=== PATIENT | female | born 1980 | race Hispanic/Latino ===

== ENCOUNTER → 2017-09-30 | Outpatient (CLI) | payer OTHER ==
[~2017-09-30] MED LIST: LIDOCAINE/PRILOCAINE CREAM 5GM TUBE TP ONE
[2017-09-30 18:33] VITALS: BP 155/99
== END | disposition home or self-care (01) ==
LOC: WHH 15:00
PROVIDERS: ATTEND Family Medicine
DX: T81.89XD Other complications of procedures, not elsewhere classified, subsequent encounter (principal); E66.01 Morbid (severe) obesity due to excess calories; K74.60 Unspecified cirrhosis of liver; L40.8 Other psoriasis; Y83.8 Other surgical procedures as the cause of abnormal reaction of the patient, or of later complication, without mention of misadventure at the time of the procedure
CPT/HCPCS: 11042; A4450; J3490

== ENCOUNTER → 2017-10-17 | Outpatient (CLI) | payer OTHER ==
[2017-10-17 16:14] VITALS: BP 175/105
== END | disposition home or self-care (01) ==
LOC: WHH 14:00
PROVIDERS: ATTEND Family Medicine
DX: T81.89XD Other complications of procedures, not elsewhere classified, subsequent encounter (principal); L40.8 Other psoriasis; G43.909 Migraine, unspecified, not intractable, without status migrainosus; E66.01 Morbid (severe) obesity due to excess calories; Y83.8 Other surgical procedures as the cause of abnormal reaction of the patient, or of later complication, without mention of misadventure at the time of the procedure
CPT/HCPCS: 11042

== ENCOUNTER → 2017-10-24 | Outpatient (CLI) | payer OTHER ==
[2017-10-24 15:28] VITALS: BP 174/104
== END | disposition home or self-care (01) ==
LOC: WHH 13:30
PROVIDERS: ATTEND Family Medicine
DX: T81.89XD Other complications of procedures, not elsewhere classified, subsequent encounter (principal); L40.9 Psoriasis, unspecified; E66.01 Morbid (severe) obesity due to excess calories; G43.909 Migraine, unspecified, not intractable, without status migrainosus; K74.60 Unspecified cirrhosis of liver; L40.8 Other psoriasis; Y83.8 Other surgical procedures as the cause of abnormal reaction of the patient, or of later complication, without mention of misadventure at the time of the procedure
CPT/HCPCS: 11042; J3490

== ENCOUNTER → 2017-10-31 | Outpatient (CLI) | payer OTHER ==
[2017-10-31 17:38] VITALS: BP 152/98
== END | disposition home or self-care (01) ==
LOC: WHH 12:55
PROVIDERS: ATTEND Family Medicine
DX: T81.89XD Other complications of procedures, not elsewhere classified, subsequent encounter (principal); M79.89 Other specified soft tissue disorders; E66.01 Morbid (severe) obesity due to excess calories; G43.909 Migraine, unspecified, not intractable, without status migrainosus; L40.8 Other psoriasis; K74.60 Unspecified cirrhosis of liver; Y83.8 Other surgical procedures as the cause of abnormal reaction of the patient, or of later complication, without mention of misadventure at the time of the procedure
CPT/HCPCS: 11042; A4450; A6452; J3490

== ENCOUNTER → 2017-11-07 | Outpatient (CLI) | payer OTHER ==
[2017-11-07 13:20] VITALS: BP 168/106
== END | disposition home or self-care (01) ==
LOC: WHH 13:00
PROVIDERS: ATTEND Family Medicine
DX: T81.89XD Other complications of procedures, not elsewhere classified, subsequent encounter (principal); E66.01 Morbid (severe) obesity due to excess calories; G43.909 Migraine, unspecified, not intractable, without status migrainosus; K74.60 Unspecified cirrhosis of liver; L40.8 Other psoriasis; Y83.8 Other surgical procedures as the cause of abnormal reaction of the patient, or of later complication, without mention of misadventure at the time of the procedure
CPT/HCPCS: 11042; J3490

== ENCOUNTER → 2017-11-21 | Outpatient (CLI) | payer OTHER | END | disposition home or self-care (01) | LOC: RAH 12:43 | PROVIDERS: ATTEND Family Medicine | DX: S81.809D Unspecified open wound, unspecified lower leg, subsequent encounter (principal); X58.XXXD Exposure to other specified factors, subsequent encounter | CPT/HCPCS: 93971 ==

== ENCOUNTER → 2017-11-28 | Outpatient (CLI) | payer OTHER ==
[~2017-11-28] MED LIST changes: +HONEY 1 APPL/ML TUBE TP ONE
[2017-11-28 13:47] VITALS: BP 186/88
== END | disposition home or self-care (01) ==
LOC: WHH 13:00
PROVIDERS: ATTEND Family Medicine
DX: S81.801D Unspecified open wound, right lower leg, subsequent encounter (principal); G43.909 Migraine, unspecified, not intractable, without status migrainosus; E66.01 Morbid (severe) obesity due to excess calories; X58.XXXD Exposure to other specified factors, subsequent encounter
CPT/HCPCS: 11042; A4450; A6452; J3490

== ENCOUNTER → 2017-12-05 | Outpatient (CLI) | payer OTHER ==
[~2017-12-05] MED LIST changes: -HONEY 1 APPL/ML TUBE TP ONE
[2017-12-05 13:42] VITALS: BP 164/103
== END | disposition home or self-care (01) ==
LOC: WHH 13:00
PROVIDERS: ATTEND Family Medicine
DX: T81.89XD Other complications of procedures, not elsewhere classified, subsequent encounter (principal); I83.018 Varicose veins of right lower extremity with ulcer other part of lower leg; L97.811 Non-pressure chronic ulcer of other part of right lower leg limited to breakdown of skin; G43.809 Other migraine, not intractable, without status migrainosus; E66.01 Morbid (severe) obesity due to excess calories; L40.8 Other psoriasis; Y83.8 Other surgical procedures as the cause of abnormal reaction of the patient, or of later complication, without mention of misadventure at the time of the procedure
CPT/HCPCS: 11042; 36415; 84134; A6452; J3490; 86141

== ENCOUNTER → 2017-12-19 | Outpatient (CLI) | payer OTHER ==
[2017-12-19 15:31] VITALS: BP 148/93
== END | disposition home or self-care (01) ==
LOC: WHH 13:00
PROVIDERS: ATTEND Family Medicine
DX: T81.89XD Other complications of procedures, not elsewhere classified, subsequent encounter (principal); I83.018 Varicose veins of right lower extremity with ulcer other part of lower leg; L97.811 Non-pressure chronic ulcer of other part of right lower leg limited to breakdown of skin; I89.0 Lymphedema, not elsewhere classified; G43.809 Other migraine, not intractable, without status migrainosus; L40.8 Other psoriasis; E66.01 Morbid (severe) obesity due to excess calories; Y83.8 Other surgical procedures as the cause of abnormal reaction of the patient, or of later complication, without mention of misadventure at the time of the procedure
CPT/HCPCS: 11042; 36415; 86140; J3490; 86141

== ENCOUNTER → 2017-12-26 | Outpatient (CLI) | payer OTHER ==
[2017-12-26 08:18] VITALS: BP 147/82
== END | disposition home or self-care (01) ==
LOC: WHH 08:00
PROVIDERS: ATTEND Family Medicine
DX: I83.018 Varicose veins of right lower extremity with ulcer other part of lower leg (principal); L97.811 Non-pressure chronic ulcer of other part of right lower leg limited to breakdown of skin; E66.01 Morbid (severe) obesity due to excess calories; G43.909 Migraine, unspecified, not intractable, without status migrainosus; L40.8 Other psoriasis
CPT/HCPCS: 11042; A6452; J3490

== ENCOUNTER → 2018-01-02 | Outpatient (CLI) | payer OTHER ==
[~2018-01-02] MED LIST changes: +HONEY 1 APPL/ML TUBE TP ONE
[2018-01-02 13:25] VITALS: BP 158/82
== END | disposition home or self-care (01) ==
LOC: WHH 13:00
PROVIDERS: ATTEND Family Medicine
DX: T81.89XD Other complications of procedures, not elsewhere classified, subsequent encounter (principal); I83.018 Varicose veins of right lower extremity with ulcer other part of lower leg; L97.811 Non-pressure chronic ulcer of other part of right lower leg limited to breakdown of skin; G43.909 Migraine, unspecified, not intractable, without status migrainosus; L40.8 Other psoriasis; E66.01 Morbid (severe) obesity due to excess calories; I89.0 Lymphedema, not elsewhere classified; Y83.8 Other surgical procedures as the cause of abnormal reaction of the patient, or of later complication, without mention of misadventure at the time of the procedure
CPT/HCPCS: 11042; A4450; A6452; J3490

== ENCOUNTER → 2018-01-16 | Outpatient (CLI) | payer OTHER ==
[2018-01-16 13:24] VITALS: BP 182/88
== END | disposition home or self-care (01) ==
LOC: WHH 13:00
PROVIDERS: ATTEND Family Medicine
DX: I83.018 Varicose veins of right lower extremity with ulcer other part of lower leg (principal); L97.811 Non-pressure chronic ulcer of other part of right lower leg limited to breakdown of skin; G43.909 Migraine, unspecified, not intractable, without status migrainosus; L40.8 Other psoriasis; E66.01 Morbid (severe) obesity due to excess calories; I89.0 Lymphedema, not elsewhere classified
CPT/HCPCS: 11042; A6213; J3490

== ENCOUNTER → 2018-01-30 | Outpatient (CLI) | payer OTHER ==
[~2018-01-30] MED LIST changes: -HONEY 1 APPL/ML TUBE TP ONE
[2018-01-30 13:50] VITALS: BP 149/84
== END | disposition home or self-care (01) ==
LOC: WHH 13:00
PROVIDERS: ATTEND Family Medicine
DX: T81.89XD Other complications of procedures, not elsewhere classified, subsequent encounter (principal); I83.018 Varicose veins of right lower extremity with ulcer other part of lower leg; L97.811 Non-pressure chronic ulcer of other part of right lower leg limited to breakdown of skin; E66.01 Morbid (severe) obesity due to excess calories; L40.9 Psoriasis, unspecified; G43.909 Migraine, unspecified, not intractable, without status migrainosus; I89.0 Lymphedema, not elsewhere classified; Y83.8 Other surgical procedures as the cause of abnormal reaction of the patient, or of later complication, without mention of misadventure at the time of the procedure
CPT/HCPCS: 11042; A6022; A6197; A6452; J3490

== ENCOUNTER → 2018-02-03 | Outpatient (CLI) | payer OTHER | END | disposition home or self-care (01) | LOC: WHH 15:30 | PROVIDERS: ATTEND Family Medicine | DX: I83.018 Varicose veins of right lower extremity with ulcer other part of lower leg (principal); L97.811 Non-pressure chronic ulcer of other part of right lower leg limited to breakdown of skin; E66.01 Morbid (severe) obesity due to excess calories; L40.9 Psoriasis, unspecified; G43.909 Migraine, unspecified, not intractable, without status migrainosus; I89.0 Lymphedema, not elsewhere classified | CPT/HCPCS: 99211; A6197 ==

== ENCOUNTER 2018-02-06 16:07 | Emergency (ER) | payer OTHER ==
[2018-02-06 16:48] LABS: APPEARANCE,URINE Cloudy (CLEAR); BILIRUBIN,URINE Negative (NEGATIVE); COLOR,URINE Yellow (YELLOW); GLUCOSE, URINE (UA) Negative (NEGATIVE); KETONES,URINE Negative (NEGATIVE); LEUKOCYTE ESTERASE ,URINE Large (NEGATIVE); NITRATE,URINE Negative (NEGATIVE); OCCULT BLOOD,URINE Moderate (NEGATIVE); PH,URINE 6.5 (5.0-8.0); PROTEIN,URINE Negative (NEGATIVE); UROBILINOGEN,URINE 0.2 mg/dL (0.2-1.0)
[2018-02-06 16:53] LABS: HCG,QUAL RESULT NEGATIVE (NEGATIVE)
[2018-02-06 16:56] LABS: BACTERIA,URINE Rare /HPF (None Seen); MUCUS,URINE Few LPF (None Seen); TRANSITIONAL EPI CELLS,URINE Few /HPF (None Seen); YEAST,URINE BUDDING Rare /HPF (None Seen)
== END 2018-02-06 18:28 | disposition home or self-care (01) ==
LOC: EDH 16:07
DX: I10 Essential (primary) hypertension (principal); F41.1 Generalized anxiety disorder; L40.9 Psoriasis, unspecified; Z88.0 Allergy status to penicillin
CPT/HCPCS: 70450; 81001; 81025; 93005

== ENCOUNTER → 2018-02-06 | Outpatient (CLI) | payer OTHER ==
[2018-02-06 13:59] VITALS: BP 196/116
[2018-02-06 14:10] VITALS: BP 170/116
== END | disposition home or self-care (01) ==
LOC: WHH 13:00
PROVIDERS: ATTEND Family Medicine
DX: T81.89XD Other complications of procedures, not elsewhere classified, subsequent encounter (principal); L40.8 Other psoriasis; G43.909 Migraine, unspecified, not intractable, without status migrainosus; E66.01 Morbid (severe) obesity due to excess calories; I89.0 Lymphedema, not elsewhere classified; Y83.8 Other surgical procedures as the cause of abnormal reaction of the patient, or of later complication, without mention of misadventure at the time of the procedure
CPT/HCPCS: 11042; A6022; A6197; J3490

== ENCOUNTER → 2018-02-20 | Outpatient (CLI) | payer OTHER ==
[2018-02-20 13:34] VITALS: BP 130/91
== END | disposition home or self-care (01) ==
LOC: WHH 13:00
PROVIDERS: ATTEND Family Medicine
DX: I83.018 Varicose veins of right lower extremity with ulcer other part of lower leg (principal); L97.811 Non-pressure chronic ulcer of other part of right lower leg limited to breakdown of skin; L40.8 Other psoriasis; G43.909 Migraine, unspecified, not intractable, without status migrainosus; I89.0 Lymphedema, not elsewhere classified; E66.01 Morbid (severe) obesity due to excess calories
CPT/HCPCS: 11042; A6022; A6197; A6452; J3490

== ENCOUNTER → 2018-03-06 | Outpatient (CLI) | payer OTHER ==
[2018-03-06 15:23] VITALS: BP 156/86
== END | disposition home or self-care (01) ==
LOC: WHH 13:00
PROVIDERS: ATTEND Family Medicine
DX: T81.89XD Other complications of procedures, not elsewhere classified, subsequent encounter (principal); I83.018 Varicose veins of right lower extremity with ulcer other part of lower leg; L97.811 Non-pressure chronic ulcer of other part of right lower leg limited to breakdown of skin; E66.01 Morbid (severe) obesity due to excess calories; G43.909 Migraine, unspecified, not intractable, without status migrainosus; I89.0 Lymphedema, not elsewhere classified; I10 Essential (primary) hypertension; F41.1 Generalized anxiety disorder; L40.8 Other psoriasis; Y83.8 Other surgical procedures as the cause of abnormal reaction of the patient, or of later complication, without mention of misadventure at the time of the procedure
CPT/HCPCS: 11042; A4450; A6197; A6452; J3490

== ENCOUNTER → 2018-03-13 | Outpatient (CLI) | payer OTHER ==
[2018-03-13 14:52] VITALS: BP 162/104
== END | disposition home or self-care (01) ==
LOC: WHH 13:00
PROVIDERS: ATTEND Family Medicine
DX: T81.89XD Other complications of procedures, not elsewhere classified, subsequent encounter (principal); G43.909 Migraine, unspecified, not intractable, without status migrainosus; E66.01 Morbid (severe) obesity due to excess calories; I10 Essential (primary) hypertension; F41.1 Generalized anxiety disorder; I89.0 Lymphedema, not elsewhere classified; L40.8 Other psoriasis; Y83.8 Other surgical procedures as the cause of abnormal reaction of the patient, or of later complication, without mention of misadventure at the time of the procedure
CPT/HCPCS: 11042; A6209

== ENCOUNTER → 2018-03-24 | Outpatient (CLI) | payer OTHER ==
[2018-03-24 13:50] VITALS: BP 162/109
== END | disposition home or self-care (01) ==
LOC: WHH 13:00
PROVIDERS: ATTEND Family Medicine
DX: I83.018 Varicose veins of right lower extremity with ulcer other part of lower leg (principal); L97.811 Non-pressure chronic ulcer of other part of right lower leg limited to breakdown of skin; G43.909 Migraine, unspecified, not intractable, without status migrainosus; E66.01 Morbid (severe) obesity due to excess calories; I10 Essential (primary) hypertension; I89.0 Lymphedema, not elsewhere classified; L40.8 Other psoriasis; F41.1 Generalized anxiety disorder
CPT/HCPCS: 11042; A6197; A6248; J3490

== ENCOUNTER → 2018-04-03 | Outpatient (CLI) | payer OTHER ==
[2018-04-03 15:06] VITALS: BP 160/105
== END | disposition home or self-care (01) ==
LOC: WHH 13:00
PROVIDERS: ATTEND Family Medicine
DX: I83.018 Varicose veins of right lower extremity with ulcer other part of lower leg (principal); L97.811 Non-pressure chronic ulcer of other part of right lower leg limited to breakdown of skin; G43.909 Migraine, unspecified, not intractable, without status migrainosus; E66.01 Morbid (severe) obesity due to excess calories; I10 Essential (primary) hypertension; I89.0 Lymphedema, not elsewhere classified; L40.8 Other psoriasis; F41.1 Generalized anxiety disorder
CPT/HCPCS: 11042; A6196; J3490

== ENCOUNTER 2018-11-07 14:35 | Emergency (ER) | payer OTHER ==
[2018-11-07] MEDS ORDERED: PHENAZOPYRIDINE HCL 200 MG TABLET ONE (14:53)
[2018-11-07] MEDS ORDERED: CEFTRIAXONE SODIUM 1 GM ONE (14:53)
[2018-11-07 15:20] LABS: BILIRUBIN,URINE Negative (NEGATIVE); GLUCOSE, URINE (UA) Negative (NEGATIVE); KETONES,URINE Negative (NEGATIVE); LEUKOCYTE ESTERASE ,URINE Moderate (NEGATIVE); NITRATE,URINE Negative (NEGATIVE); OCCULT BLOOD,URINE Large (NEGATIVE); PH,URINE 5.5 (5.0-8.0); PROTEIN,URINE POS 2+ (NEGATIVE); UROBILINOGEN,URINE 0.2 mg/dL (0.2-1.0)
[2018-11-07 15:22] LABS: APPEARANCE,URINE BLOODY (CLEAR); COLOR,URINE RED (YELLOW)
[2018-11-07 15:23] LABS: HCG,QUAL RESULT NEGATIVE (NEGATIVE)
[2018-11-07 15:25] LABS: RBC,URINE Full Field /HPF (0-1)
[2018-11-07 15:26] LABS: BACTERIA,URINE Few /HPF (None Seen); WBC,URINE >100 /HPF (0-1)
[2018-11-07 15:31] LABS: RENAL EPITHELIAL CELLS,URINE Rare /HPF (None Seen); TRANSITIONAL EPI CELLS,URINE Moderate /HPF (None Seen)
== END 2018-11-07 15:40 | disposition home or self-care (01) ==
LOC: EDH 14:35
DX: N30.91 Cystitis, unspecified with hematuria (principal); G43.909 Migraine, unspecified, not intractable, without status migrainosus; Z88.0 Allergy status to penicillin
CPT/HCPCS: 81001; 81025; 87088; 96372; 99283; J0696

== ENCOUNTER → 2019-04-02 | Outpatient (CLI) | payer OTHER | END | disposition home or self-care (01) | LOC: SHCH 09:56 | PROVIDERS: ATTEND Internal Medicine Cardiovascular Disease | DX: R07.9 Chest pain, unspecified (principal) | CPT/HCPCS: 93306 ==

== ENCOUNTER → 2019-04-23 | Outpatient (CLI) | payer OTHER ==
[~2019-04-23] VITALS: Ht 170.2 cm; Wt 146.1 kg
[~2019-04-23] MED LIST changes: -LIDOCAINE/PRILOCAINE CREAM 5GM TUBE TP ONE; +REGADENOSON 0.4 MG/5 ML PF SYG IVP SCH
== END | disposition home or self-care (01) ==
LOC: SHCH 08:43
PROVIDERS: ATTEND Internal Medicine Cardiovascular Disease
DX: R07.9 Chest pain, unspecified (principal)
CPT/HCPCS: 78452; 93017; 96374; A9500 ×2; J2785

== ENCOUNTER 2021-11-06 17:28 | Emergency (ER) | payer OTHER ==
[~2021-11-06] VITALS: Ht 157.5 cm; Wt 113.4 kg
[2021-11-06 17:59] LABS: BASOPHILS % (AUTO) 0.4 % (0.0-5.0); EOSINOPHILS % (AUTO) 0.8 % (0.0-8.0); HEMATOCRIT 42.6 % (36-48); LYMPHOCYTES % (AUTO) 15.4 % (21.0-51.0); MEAN CORPUSCULAR HEMOGLOBIN 28.3 pg (27.0-33.0); MEAN CORPUSCULAR HGB CONC 31.5 g/dL (32.0-36.0); MEAN CORPUSCULAR VOLUME 89.9 fL (79-99); MONOCYTES % (AUTO) 4.5 % (3.0-13.0); NEUTROPHILS % (AUTO) 78.5 % (40.0-77.0); PLATELET COUNT (AUTO) 511 K/uL (130-400); RED BLOOD CELL COUNT(AUTO) 4.74 MIL/uL (4.00-5.50); RED CELL DISTRIBUTION WIDTH 13.7 % (11.0-15.5); WHITE BLOOD COUNT (AUTO) 16.8 K/uL (4.8-10.8)
[2021-11-06 18:01] LABS: APPEARANCE,URINE CLEAR (CLEAR); BILIRUBIN,URINE NEGATIVE (NEGATIVE); COLOR,URINE YELLOW (YELLOW); GLUCOSE, URINE (UA) NEGATIVE (NEGATIVE); KETONES,URINE 5 mg/dL (NEGATIVE); LEUKOCYTE ESTERASE ,URINE SMALL (NEGATIVE); NITRATE,URINE NEGATIVE (NEGATIVE); OCCULT BLOOD,URINE NEGATIVE (NEGATIVE); PROTEIN,URINE TRACE mg/dL (NEGATIVE); UROBILINOGEN,URINE 0.2 mg/dL (0.2-1.0)
[2021-11-06 18:04] LABS: HCG,QUAL RESULT NEGATIVE (NEGATIVE)
[2021-11-06 18:06] LABS: BACTERIA,URINE Few /HPF (None Seen); RBC,URINE 0-1 /HPF (0-1)
[2021-11-06 18:07] LABS: MUCUS,URINE Rare LPF (None Seen); SQUAMOUS EPITHELIAL CELL,UR Moderate /HPF (0-2)
[2021-11-06 18:12] LABS: CREATININE 0.7 mg/dL (0.5-1.5)
[2021-11-06 18:16] LABS: ALBUMIN 3.5 g/dL (3.5-5.0); BILIRUBIN,TOTAL 0.6 mg/dL (0.2-1.0); TOTAL PROTEIN, SERUM 7.8 g/dL (6.0-8.3)
[2021-11-06] MEDS ORDERED: MAG/ALUM/SIMETH 30 ML UDCUP PO ONE (18:30)
[2021-11-06] MEDS ORDERED: MORPHINE 4 MG SYG IV ONE (18:30)
[2021-11-06] MEDS ORDERED: FAMOTIDINE 20MG VIAL IV ONE (18:30)
[2021-11-06] MEDS ORDERED: ONDANSETRON 4MG INJ IVP ONE (18:30)
[2021-11-06] MEDS ORDERED: KETOROLAC 15MG/ML VIAL (15MG/ML) IV ONE (20:00)
[2021-11-06] MEDS ORDERED: ACET1TAB25 PO (20:05)
[2021-11-06] MEDS ORDERED: ONDA4TAB10 PO (20:05)
[2021-11-06 20:08] VITALS: BP 132/74
== END 2021-11-06 20:13 | disposition home or self-care (01) ==
LOC: EDH 17:28
DX: K80.20 Calculus of gallbladder without cholecystitis without obstruction (principal); R10.13 Epigastric pain; R11.0 Nausea
CPT/HCPCS: 36415; 74177; 76705; 80053; 81001; 81025; 83690; 85025; 93005; 96374; 96375; 99285; J1885; J2270; J2405; J3490

== ENCOUNTER 2022-10-01 05:06 | Observation (INO) | payer OTHER ==
[~2022-10-01] VITALS: Ht 170.2 cm; Wt 112.0 kg
[~2022-10-01 05:06] MED LIST changes: +ACET-2079 PO; +ONDA4TAB10 PO; -REGADENOSON 0.4 MG/5 ML PF SYG IVP SCH
[2022-10-01] MEDS ORDERED: ONDANSETRON 4MG INJ IVP ONE (05:30)
[2022-10-01] MEDS ORDERED: MORPHINE 4 MG SYG IVP ONE (05:30)
[2022-10-01 05:36] LABS: BASOPHILS % (AUTO) 0.3 % (0.0-5.0); HEMATOCRIT 37.6 % (36-48); LYMPHOCYTES % (AUTO) 13.6 % (21.0-51.0); MEAN CORPUSCULAR HEMOGLOBIN 28.4 pg (27.0-33.0); MEAN CORPUSCULAR HGB CONC 32.4 g/dL (32.0-36.0); MEAN CORPUSCULAR VOLUME 87.4 fL (79-99); MONOCYTES % (AUTO) 5.1 % (3.0-13.0); NEUTROPHILS % (AUTO) 79.3 % (40.0-77.0); PLATELET COUNT (AUTO) 352 K/uL (130-400); WHITE BLOOD COUNT (AUTO) 13.5 K/uL (4.8-10.8)
[2022-10-01 05:48] LABS: CREATININE 0.7 mg/dL (0.5-1.5); POTASSIUM 3.5 mmol/L (3.5-5.1)
[2022-10-01 05:52] LABS: ALBUMIN 3.1 g/dL (3.5-5.0); TOTAL PROTEIN, SERUM 6.8 g/dL (6.0-8.3)
[2022-10-01] MEDS ORDERED: KETOROLAC 30MG VIAL (30MG/ML) IVP ONE (06:30)
[2022-10-01] MEDS ORDERED: 0.9%NACL 1000ML 1,000 ML IV ONE (06:30)
[2022-10-01] MEDS ORDERED: ZOSYN 3.375GM +NS 50ML IV ONE (06:30)
[2022-10-01] MEDS ORDERED: ONDANSETRON 4MG INJ IV PRN (07:30)
[2022-10-01] MEDS ORDERED: LACTULOSE 20 GM/30 ML UDCUP PO PRN (07:30)
[2022-10-01] MEDS ORDERED: HYDROMORPHONE 1 MG INJ IVP PRN (07:30)
[2022-10-01] MEDS ORDERED: HYDROMORPHONE 0.5 MG SYG (0.5MG/0.5ML) IVP PRN (07:30)
[2022-10-01] MEDS ORDERED: ACETAMINOPHEN 325 MG TAB PO PRN ×2 (07:30)
[2022-10-01] MEDS ORDERED: SOLU-MEDROL 40MG VIAL ONE (07:47)
[2022-10-01] MEDS: DiphenhydrAMINE HCL 50 MG/ML VIAL ONE ×2 (07:53→07:54)
[2022-10-01] MEDS: 0.9%NACL 1000ML 1,000 ML IV SCH ×2 (07:55→23:30)
[2022-10-01] MEDS: FAMOTIDINE 20MG VIAL IV SCH ×2 (07:57→21:08)
[2022-10-01] MEDS ORDERED: DiphenhydrAMINE HCL 50 MG/ML VIAL IV ONE (08:00)
[2022-10-01] MEDS ORDERED: SOLU-MEDROL 40MG VIAL IVP ONE (08:00)
[2022-10-01 08:16] LABS: INR 0.93 (0.85-1.15)
[2022-10-01 08:17] LABS: PARTIAL THROMBOPLASTIN TIME 28.1 SEC (26.3-35.5)
[2022-10-01 08:22] LABS: MAGNESIUM 1.9 mg/dL (1.80-2.40); PHOSPHORUS 3.4 mg/dL (2.5-4.9)
[2022-10-01 08:30] VITALS: BP 118/73
[2022-10-01 08:33] LABS: APPEARANCE,URINE CLOUDY (CLEAR); BILIRUBIN,URINE NEGATIVE (NEGATIVE); COLOR,URINE YELLOW (YELLOW); GLUCOSE, URINE (UA) NEGATIVE (NEGATIVE); KETONES,URINE 10 mg/dL (NEGATIVE); LEUKOCYTE ESTERASE ,URINE 25 Leu/uL (NEGATIVE); NITRATE,URINE NEGATIVE (NEGATIVE); OCCULT BLOOD,URINE NEGATIVE (NEGATIVE); PROTEIN,URINE 10 mg/dL (NEGATIVE)
[2022-10-01 08:37] LABS: HCG,QUALITATIVE URINE NEGATIVE (NEGATIVE)
[2022-10-01 08:40] LABS: MUCUS,URINE FEW LPF (None Seen); SQUAMOUS EPITHELIAL CELL,UR RARE /HPF (0-2)
[2022-10-01 11:47] VITALS: BP 121/81
[2022-10-01] MEDS ORDERED: ZOSYN 3.375GM+NS 50ML 50 ML IV SCH (13:00)
[2022-10-01 15:51] VITALS: BP 119/71
[2022-10-01 19:58] VITALS: BP 120/69
[2022-10-01] MEDS ORDERED: LEVOFLOXACIN 500 MG/D5W 100 ML 100 ML IV SCH (20:00)
[2022-10-01 23:34] VITALS: BP 122/69
[2022-10-02 03:41] VITALS: BP 108/67
[2022-10-02] MEDS: 0.9%NACL 1000ML 1,000 ML IV SCH (05:16)
[2022-10-02] MEDS: FAMOTIDINE 20MG VIAL IV SCH (08:51)
[2022-10-02 12:00] VITALS: BP 141/98
[2022-10-02 12:15] LABS: BASOPHILS % (AUTO) 0.2 % (0.0-5.0); EOSINOPHILS % (AUTO) 0.4 % (0.0-8.0); HEMATOCRIT 37.5 % (36-48); LYMPHOCYTES % (AUTO) 13.2 % (21.0-51.0); MEAN CORPUSCULAR HEMOGLOBIN 28.3 pg (27.0-33.0); MEAN CORPUSCULAR VOLUME 88.4 fL (79-99); MONOCYTES % (AUTO) 5.5 % (3.0-13.0); NEUTROPHILS % (AUTO) 79.2 % (40.0-77.0); PLATELET COUNT (AUTO) 362 K/uL (130-400); RED BLOOD CELL COUNT(AUTO) 4.24 MIL/uL (4.00-5.50); WHITE BLOOD COUNT (AUTO) 13.3 K/uL (4.8-10.8)
[2022-10-02 12:37] LABS: ALBUMIN 2.9 g/dL (3.5-5.0); CREATININE 0.6 mg/dL (0.5-1.5); POTASSIUM 3.6 mmol/L (3.5-5.1); TOTAL PROTEIN, SERUM 6.4 g/dL (6.0-8.3)
[2022-10-02 16:00] VITALS: BP 144/81
== END 2022-10-02 16:30 | disposition home or self-care (01) ==
LOC: EDH 05:06 → EDHIP 07:16 → INTOOBSV 07:16 → 3DH 08:31
PROVIDERS: ADMIT Internal Medicine; ATTEND Internal Medicine
DX: R10.11 Right upper quadrant pain (principal); Z20.822 Contact with and (suspected) exposure to COVID-19; D72.829 Elevated white blood cell count, unspecified; E66.9 Obesity, unspecified; K76.0 Fatty (change of) liver, not elsewhere classified; N39.0 Urinary tract infection, site not specified; Z88.0 Allergy status to penicillin; Z79.52 Long term (current) use of systemic steroids; Z68.38 Body mass index [BMI] 38.0-38.9, adult; Z79.899 Other long term (current) drug therapy
CPT/HCPCS: 96361 ×2; 78226; 99284; 96375 ×2; 96365; 76705; 96367; 87635; 80061; 83735; 84100; 80053 ×2; 83690; 85025 ×2; 85610; 85730; 87804 ×2; 81001; 81025; 36415 ×2; 96376 ×2; C9803; J1200; J3490 ×3; J1956; J7030 ×2; J2405; J2920; J2270; J1885; J2543; J1170 ×2; A9537; G0378

== ENCOUNTER 2023-06-12 12:00 | Emergency (ER) | payer OTHER ==
[~2023-06-12] VITALS: Ht 170.2 cm; Wt 111.6 kg
[~2023-06-12 12:00] MED LIST changes: -ACET-2079 PO; +APRE1TAB3 PO; +DICY20TA3 PO; +DIPH-1242 PO; +FAMO40TA7 PO; +METO25TA6 PO; +MONT-39 PO; -ONDA4TAB10 PO; +PRED20TA3 PO
[2023-06-12 12:14] VITALS: BP 160/87; PULSE 87; RESP 16; O2SAT 97
== END 2023-06-12 16:16 | disposition left against medical advice (07) ==
LOC: EDH 12:00
DX: R10.32 Left lower quadrant pain (principal); R10.31 Right lower quadrant pain; Z53.21 Procedure and treatment not carried out due to patient leaving prior to being seen by health care provider
CPT/HCPCS: 99281

== ENCOUNTER 2023-10-31 20:26 | Emergency (ER) | payer OTHER ==
[~2023-10-31] VITALS: Ht 170.2 cm; Wt 113.4 kg
[2023-10-31] MEDS ORDERED: SOLU-MEDROL 125MG VIAL IVP ONE (21:00)
[2023-10-31] MEDS ORDERED: DiphenhydrAMINE HCL 50 MG/ML VIAL IV ONE (21:00)
[2023-10-31] MEDS ORDERED: FAMOTIDINE 20MG VIAL IV ONE (21:00)
[2023-10-31 21:36] VITALS: BP 127/68; PULSE 74; RESP 16; O2SAT 98
[2023-10-31] MEDS ORDERED: FAMO-136 PO (22:01)
[2023-10-31] MEDS ORDERED: [UNRECOGNIZED DRUG - CODE] PO (22:01)
[2023-10-31] MEDS ORDERED: DIPH50 PO (22:01)
== END 2023-10-31 22:14 | disposition home or self-care (01) ==
LOC: EDH 20:26
DX: T78.40XA Allergy, unspecified, initial encounter (principal); Z79.899 Other long term (current) drug therapy; Z88.0 Allergy status to penicillin; Z90.49 Acquired absence of other specified parts of digestive tract
CPT/HCPCS: 99284; 96374; 96375; J1200; J3490; J2930

== ENCOUNTER 2024-07-20 21:01 | Emergency (ER) | payer OTHER ==
[~2024-07-20] VITALS: Ht 170.2 cm; Wt 107.5 kg
[~2024-07-20 21:01] MED LIST changes: +DIPH50 PO; +FAMO-136 PO; +[UNRECOGNIZED DRUG - CODE] PO
[2024-07-20 21:54] LABS: HEMATOCRIT 37.9 % (36-48); MEAN CORPUSCULAR HEMOGLOBIN 29.3 pg (27.0-33.0); MEAN CORPUSCULAR HGB CONC 33.5 g/dL (32.0-36.0); MEAN CORPUSCULAR VOLUME 87.5 fL (79-99); RED BLOOD CELL COUNT(AUTO) 4.33 MIL/uL (4.00-5.50); RED CELL DISTRIBUTION WIDTH 13.2 % (11.0-15.5); WHITE BLOOD COUNT (AUTO) 9.9 K/uL (4.8-10.8)
[2024-07-20 22:09] LABS: CREATININE 0.7 mg/dL (0.5-1.0); POTASSIUM 4.3 mmol/L (3.5-5.1)
[2024-07-20 22:23] LABS: ALBUMIN 3.6 g/dL (3.5-5.0); BILIRUBIN,TOTAL 0.3 mg/dL (0.2-1.0); THYROID STIMULATING HORMONE 3.08 uIU/mL (0.36-3.74); TOTAL PROTEIN, SERUM 7.1 g/dL (6.0-8.3)
[2024-07-20] MEDS: clonazePAM 0.5 MG TABLET PO ONE (22:43)
[2024-07-20] MEDS: furoSEMIDE 20MG VIAL IV ONE (22:43)
[2024-07-20 23:01] LABS: RAPID GROUP A STREP negative (NEGATIVE)
[2024-07-20 23:10] LABS: COVID19 (SARS ANTIGEN RAPID) PRESUMPTIVE NEGATIVE (NEGATIVE); INFLUENZA TYPE A Negative For Type A (NEGATIVE); INFLUENZA TYPE B Negative For Type B (NEGATIVE)
[2024-07-20] MEDS ORDERED: PHEN-615 PO (23:12)
[2024-07-20] MEDS ORDERED: FISH1CAP27 PO (23:12)
[2024-07-20] MEDS ORDERED: ERGO500093 PO (23:12)
[2024-07-20] MEDS ORDERED: AMIT25TA9 PO (23:12)
[2024-07-20 23:45] LABS: AMPHET/METH SCREEN,URINE NEGATIVE (NEGATIVE); BARBITURATE SCREEN, URINE NEGATIVE (NEGATIVE); BENZODIAZEPINES SCREEN,URINE NEGATIVE (NEGATIVE); CANNABINOID SCREEN,URINE NEGATIVE (NEGATIVE); COCAINE SCREEN,URINE NEGATIVE (NEGATIVE); OPIATE SCREEN,URINE NEGATIVE (NEGATIVE); PHENCYCLIDINE SCREEN,URINE NEGATIVE (NEGATIVE)
[2024-07-20 23:55] VITALS: BP 126/65; PULSE 97; RESP 18; TEMP 98.6; O2SAT 100
[2024-07-20 23:55] LABS: APPEARANCE,URINE CLEAR (CLEAR); BILIRUBIN,URINE NEGATIVE (NEGATIVE); COLOR,URINE COLORLESS (YELLOW); GLUCOSE, URINE (UA) NEGATIVE (NEGATIVE); KETONES,URINE 5 mg/dL (NEGATIVE); LEUKOCYTE ESTERASE ,URINE NEGATIVE Leu/uL (NEGATIVE); NITRATE,URINE NEGATIVE (NEGATIVE); OCCULT BLOOD,URINE NEGATIVE (NEGATIVE); PH,URINE 5.5 (5.0-8.0); PROTEIN,URINE NEGATIVE (NEGATIVE); UROBILINOGEN,URINE 0.2 mg/dL (0.2-1.0)
[2024-07-21 00:08] LABS: ADD UA MICROSCOPIC NO
== END 2024-07-21 00:01 | disposition home or self-care (01) ==
LOC: EDH 21:01
DX: R00.0 Tachycardia, unspecified (principal); R00.2 Palpitations; E66.811 Obesity, class 1; F41.9 Anxiety disorder, unspecified; I10 Essential (primary) hypertension; G43.909 Migraine, unspecified, not intractable, without status migrainosus; Z20.822 Contact with and (suspected) exposure to COVID-19; Z68.30 Body mass index [BMI] 30.0-30.9, adult; Z79.899 Other long term (current) drug therapy; Z88.0 Allergy status to penicillin; Z90.49 Acquired absence of other specified parts of digestive tract
CPT/HCPCS: 99285; 96374; 71045; 87426; 84443; 84484; 80053; 80305; 84703; 85027; 87880; 87804 ×2; 83605; 36415; 93005; 81003; J1940

== ENCOUNTER 2024-08-02 15:57 | Emergency (ER) | payer OTHER ==
[~2024-08-02] VITALS: Ht 170.2 cm; Wt 105.7 kg
[~2024-08-02 15:57] MED LIST changes: +AMIT25TA9 PO; +ERGO500093 PO; +FISH1CAP27 PO; +PHEN-615 PO
[2024-08-02 16:03] VITALS: BP 127/77; PULSE 99; RESP 16; TEMP 97.5
[2024-08-02 16:37] LABS: BASOPHILS # (AUTO) 0.07 K/uL (0.00-0.20); BASOPHILS % (AUTO) 0.3 % (0.0-5.0); EOSINOPHILS # (AUTO) 0.24 K/uL (0.00-0.70); EOSINOPHILS % (AUTO) 1.1 % (0.0-8.0); HEMATOCRIT 40.6 % (36-48); IMMATURE GRANULOCYTE ABSOLUTE 0.27 K/uL (0-1); LYMPHOCYTES # (AUTO) 4.3 K/uL (1.0-4.8); LYMPHOCYTES % (AUTO) 20.3 % (21.0-51.0); MEAN CORPUSCULAR HEMOGLOBIN 29.2 pg (27.0-33.0); MEAN CORPUSCULAR HGB CONC 33.5 g/dL (32.0-36.0); MEAN CORPUSCULAR VOLUME 87.1 fL (79-99); MONOCYTES # (AUTO) 1.2 K/uL (0.1-1.0); MONOCYTES % (AUTO) 5.6 % (3.0-13.0); NEUTROPHILS # (AUTO) 15.2 K/uL (1.8-7.7); NEUTROPHILS % (AUTO) 71.4 % (40.0-77.0); PLATELET COUNT (AUTO) 361 K/uL (130-400); RED BLOOD CELL COUNT(AUTO) 4.66 MIL/uL (4.00-5.50); RED CELL DISTRIBUTION WIDTH 13.2 % (11.0-15.5); WHITE BLOOD COUNT (AUTO) 21.2 K/uL (4.8-10.8)
[2024-08-02 16:44] LABS: CREATININE 0.8 mg/dL (0.5-1.0); POTASSIUM 3.5 mmol/L (3.5-5.1)
--- NOTE | 2024-08-02 17:52 | ERN ---
ED Note History of Present Illness Stated Complaint: RECTAL BLEEDING Chief Complaint: Tarry Stool Time Seen by MD: 17:19 Time Seen by Midlevel: 17:19 Dictation: 44-year-old female presents to the emergency department due to report of having concern of having had 1 bowel movement in which that she noticed a trace of blood after she wiped herself. She states that she does have a history of constipation and believes that it might be have attributed to having an episode of straining. However, she is concerned due to having being treated with multiple antibiotics for GERD and is concerned that this might be related to it. Patient states that she was also diagnosed with pneumonia and was placed on extended amount of time on steroids for which she just finished 3 days ago. At this time, she denies having any fever, chills, abdominal pain, nausea or vomiting associated with this. Upon initial evaluation, the patient presents in no acute distress. Allergies: Coded Allergies: piperacillin (Unverified Allergy, Intermediate, 10/01/22) RASH TO FACE AND R SIDE OF NECK. tazobactam (Unverified Allergy, Intermediate, 10/01/22) RASH TO FACE AND R SIDE OF NECK. Penicillins (Unverified Allergy, Mild, 10/01/22) HIVES amoxicillin (Unverified Allergy, Mild, 10/01/22) REDNESS TO BUE, ITCHING TO BODY clavulanic acid (Unverified Allergy, Mild, 10/01/22) REDNESS TO BUE, ITCHING TO BODY Home Meds Active Scripts Prednisolone Sod Phosphate (Prednisolone Sodium Phosphate) 30 Mg Tab.rapdis, 60 MG PO Q12H for 3 Days, #12 TAB Prov:MAGDALENA PITTMAN MD 10/31/23 Famotidine (Pepcid) 20 Mg Tablet, 20 MG PO Q12H for 3 Days, #6 TAB Prov:MAGDALENA PITTMAN MD 10/31/23 Diphenhydramine HCl (Benadryl) 50 Mg Cap, 50 MG PO Q6H for 3 Days, #12 CAP Prov:MAGDALENA PITTMAN MD 10/31/23 Famotidine (Famotidine) 40 Mg Tablet, 40 MG PO DAILY for 10 Days, #10 TAB Prov:REBECCA TERRELL MD 01/04/23 Diphenhydramine HCl (Benadryl) 25 Mg Cap, 25 MG PO TID for 10 Days, #40 CAP Prov:REBECCA TERRELL MD 01/04/23 Prednisone (Prednisone) 20 Mg Tablet, 3 TAB PO AD for 5 Days, #15 TAB 0 Refills TAKE 1 TAB BY MOUTH THREE TIMES PER DAY X3 DAYS, THEN TAKE 1 TAB BY MOUTH TWICE A DAY X2 DAYS, THEN TAKE 1 TAB BY MOUTH ONCE A DAY X1 DAY. Prov:REBECCA TERRELL MD 01/04/23 Reported Medications Ergocalciferol (Vitamin D2) (Vitamin D2) 1,250 Mcg (14145 Unit) Capsule, 1250 MCG PO AM, CAP 07/20/24 Jbph[facility]-3 Fatty Acids/Fish Oil ([facility] 3 1,000 mg Softgel) 300 Mg-1,000 Mg Capsule, 1 EACH PO BID, CAP 07/20/24 Phentermine HCl (Phentermine HCl) 37.5 Mg Capsule, 37.5 MG PO BID, CAP 07/20/24 Amitriptyline HCl (Amitriptyline HCl) 25 Mg Tablet, 25 MG PO HS, TAB 07/20/24 Dicyclomine HCl (Dicyclomine HCl) 20 Mg Tablet, 20 MG PO Q4HPRN PRN for PAIN LEVEL 1 TO 5, TAB 10/22/22 Montelukast Sodium (Montelukast Sodium) 10 Mg Tablet, 10 MG PO DAILY, TAB 10/22/22 Apremilast (Otezla) 1 Each Tab.ds.pk, 1 EACH PO QODAY 10/22/22 Metoprolol Tartrate (Metoprolol Tartrate) 25 Mg Tablet, 25 MG PO DAILY, TAB 10/22/22 Past Medical History Past Medical History: Migraines Additional Past Medical Hx: ALLERGIES, PSORASIS Surgical History: Cholecystectomy, Other Surgical History Other: SKIN GRAFTS Family History: Negative Social History: Negative, Lives with family LMP: Jul 03, 2024 RN Note Reviewed/Agreed w/PFSH: Yes Review of System Dictation Abdomen/GI: Constipation, rectal bleeding. Initial Vital Sign VS Vital Signs Date Time Temp Pulse Resp B/P (MAP) Pulse Ox O2 Delivery O2 Flow Rate FiO2 08/02/24 16:03 97.5 99 16 127/77 96 Room Air 0 Physical Exam Dictation General: awake, alert, NAD Head/Face: Normocephalic, atraumatic Eyes: PERRL, EOMI ENT: Oral mucosa moist Neck: Trachea midline, supple Cardiovascular: RRR, no edema Respiratory: Symmetrical, non-labored Abdomen: Soft, non-tender, non-distended, no guarding. Skin: Warm, dry, good turgor, no rash MS/Extremity: Pulses equal, no cyanosis, neurovascular intact, FROM Neuro: COAx4, GCS 15, steady gait, Psych: Normal behavior, mood, and affect normal Results (Laboratory/Radiology) Laboratory/Radiology Laboratory Tests Test 08/02/24 16:26 08/02/24 20:09 White Blood Count 21.2 K/uL (4.8-10.8) H Red Blood Count 4.66 MIL/uL (4.00-5.50) Hemoglobin 13.6 g/dL (12.0-16.0) Hematocrit 40.6 % (36-48) Mean Corpuscular Volume 87.1 fL (79-99) Mean Corpuscular Hemoglobin 29.2 pg (27.0-33.0) Mean Corpuscular Hemoglobin Concent 33.5 g/dL (32.0-36.0) Red Cell Distribution Width 13.2 % (11.0-15.5) Platelet Count 361 K/uL (130-400) Mean Platelet Volume 8.7 fL (7.5-10.5) Immature Granulocyte % (Auto) 1.3 % (0-1) H Neutrophils (%) (Auto) 71.4 % (40.0-77.0) Lymphocytes (%) (Auto) 20.3 % (21.0-51.0) L Monocytes (%) (Auto) 5.6 % (3.0-13.0) Eosinophils (%) (Auto) 1.1 % (0.0-8.0) Basophils (%) (Auto) 0.3 % (0.0-5.0) Neutrophils # (Auto) 15.2 K/uL (1.8-7.7) H Lymphocytes # (Auto) 4.3 K/uL (1.0-4.8) Monocytes # (Auto) 1.2 K/uL (0.1-1.0) H Eosinophils # (Auto) 0.24 K/uL (0.00-0.70) Basophils # (Auto) 0.07 K/uL (0.00-0.20) Absolute Immature Granulocyte (auto 0.27 K/uL (0-1) Nucleated Red Blood Cells 0.0 % (0.0-0.19) Sodium Level 135 mmol/L (136-145) L Potassium Level 3.5 mmol/L (3.5-5.1) Chloride Level 99 mmol/L (101-111) L Carbon Dioxide Level 27 mmol/L (21-32) Blood Urea Nitrogen 18 mg/dL (7-18) Creatinine 0.8 mg/dL (0.5-1.0) Glomerular Filtration Rate Calc 94 mL/min (>90) Random Glucose 99 mg/dL (70-105) Total Calcium 8.9 mg/dL (8.5-10.1) Urine Color LIGHT-YELLOW (YELLOW) Urine Appearance CLEAR (CLEAR) Urine pH 6.0 (5.0-8.0) Urine Specific [place] 1.044 (1.001-1.031) Urine Protein 10 mg/dL (NEGATIVE) H Urine Glucose (UA) NEGATIVE mg/dL (NEGATIVE) Urine Ketones NEGATIVE mg/dL (NEGATIVE) Urine Occult Blood NEGATIVE (NEGATIVE) Urine Nitrate NEGATIVE (NEGATIVE) Urine Bilirubin NEGATIVE mg/dL (NEGATIVE) Urine Urobilinogen 0.2 mg/dL (0.2-1.0) Urine Leukocyte Esterase NEGATIVE Aftab/uL Urine HCG, Qualitative NEGATIVE (NEGATIVE) Labs Reviewed?: Yes CT Scan Comment: CT scan with no significant findings as per radiologist's or then a di verticulosis without diverticulitis and hernia. ED Course ED Course Orders Procedure Category Date Status Time Cbc With Differential LAB 08/02/24 Complete 16:07 Basic Metabolic Panel LAB 08/02/24 Complete 16:07 Type And Screen BBK 08/02/24 Complete 16:07 Urinalysis Profile LAB 08/02/24 In Process 16:07 ,Urine Test LAB 08/02/24 In Process 16:07 Abd 1vw RAD 08/02/24 Resulted 17:49 Ct Abdomen/Pelvis CT 08/02/24 Resulted W/Contrast 19:12 Iohexol (Omnipaque) PHA 08/02/24 Complete 19:54 Current Medications Medications (Trade) Dose Ordered Sig/Alice Route PRN Reason Start Time Stop Time Status Last Admin Dose Admin Iohexol (Omnipaque) 35,000 mg STK-MED ONCE IV 08/02/24 19:54 08/02/24 19:54 DC Vital Signs Date Time Temp Pulse Resp B/P (MAP) Pulse Ox O2 Delivery O2 Flow Rate FiO2 08/02/24 16:03 97.5 99 16 127/77 96 Room Air 0 Medical Decision Making MDM MDM: Differential diagnosis: Acute diverticulitis, acute intra-abdominal abscess, rectal bleeding, small bowel obstruction. Rationale: Tests considered and ordered secondary to shared decision making include: Previous outside records reviewed: Old ER visits. Risk of complication and/or morbidity or mortality of patient management: None Medications-Per medication reconciliation Need for hospitalization: Patient does not meet criteria for hospitalization. Need for emergency major/minor surgery: No There are no social concerns with this patient. Prescription drug management Prescriptions will include symptomatic care A review of her laboratories which noted an elevated WBC count is more consistent with that associated to having been placed on extended amount of leila od time on steroids. The CT scan of the abdomen/pelvis with IV contrast was with no particular findings and upon re-evaluation for discharge she presents with benign abdominal examination. After shared decision-making, the patient is comfortable going home and follow up with the PCP for which she agrees with the treatment plan of care. Patient's prior external medical records from other ER visits were reviewed by me as indicated. Prior testing and results from previous visits were reviewed. Prior tests were taken into account with medical decision making and resource utilization, independent historian/historians were used to obtain complete medical history. I independently interpreted the test that were performed, results were reviewed by me and considered findings on radiology if ordered. Medical management and examination interpretation discussions were had by me with other qualified healthcare professionals as indicated for the patient's care. DX & DISP Disposition: Discharge Departure Impression: Primary Impression: Abdominal discomfort Additional Impression: Leukocytosis Condition: Stable Referrals: WALLACE OWUSU DO (PCP) I have reviewed the case, and I agree with, Diagnosis and Plan IVONNE NESBITT Aug 02, 2024 17:52
--- NOTE | 2024-08-02 18:48 | HMCIMG ---
Exam Type: ABD 1VW Clinical Information: Constipation Comparison: None Findings: Abdomen demonstrates no evidence of pathologic calcification or soft tissue mass. There are no radiopacities to suggest calculous disease. The intestinal gas pattern is within normal limits without evidence of dilatation to suggest obstruction or adynamic ileus. The bony structures are unremarkable. IMPRESSION: Normal abdomen.
[2024-08-02] MEDS ORDERED: IOHEXOL 350 MG/ML 100ML INFUS..BTL IV ONE (19:54)
--- NOTE | 2024-08-02 20:26 | HMCIMG ---
CT ABDOMEN/PELVIS W/CONTRAST HISTORY: Rectal bleeding TECHNIQUE: CT ABDOMEN/PELVIS W/CONTRAST Omnipaque contrast was used. Oral contrast was not given. Coronal and sagittal reformats were obtained. CT was performed with one or more of the following dose reduction techniques: Automated exposure control, adjustment of the mA and/or kV according to the patient's size, or use of the iterative reconstruction technique. Comparison: None. FINDINGS: No pulmonary consolidation or pleural effusion is seen. There is hepatic steatosis. Cholecystectomy changes are noted. The spleen, pancreas, and adrenal glands are within normal limits. No hydronephrosis. The urinary bladder is partially distended. Reproductive organs are grossly within normal limits for patient's age. No bowel obstruction is seen. Appendix is normal in caliber. Diverticulosis coli without evidence of acute diverticulitis. Small fat-containing umbilical hernia is seen. Degenerative changes of the spine. Visualized aorta is normal in caliber. IMPRESSION: 1. No bowel obstruction is seen. Appendix is normal in caliber. Diverticulosis coli without evidence of acute diverticulitis. 2. Small fat-containing umbilical hernia is seen.
[2024-08-02 20:30] LABS: HCG,QUALITATIVE URINE NEGATIVE (NEGATIVE)
[2024-08-02 20:34] LABS: APPEARANCE,URINE CLEAR (CLEAR); BILIRUBIN,URINE NEGATIVE (NEGATIVE); COLOR,URINE LIGHT-YELLOW (YELLOW); GLUCOSE, URINE (UA) NEGATIVE (NEGATIVE); KETONES,URINE NEGATIVE (NEGATIVE); LEUKOCYTE ESTERASE ,URINE NEGATIVE Leu/uL (NEGATIVE); NITRATE,URINE NEGATIVE (NEGATIVE); OCCULT BLOOD,URINE NEGATIVE (NEGATIVE); PROTEIN,URINE 10 mg/dL (NEGATIVE); UROBILINOGEN,URINE 0.2 mg/dL (0.2-1.0)
[2024-08-02 20:35] LABS: ADD UA MICROSCOPIC YES
[2024-08-02 20:36] LABS: MUCUS,URINE RARE LPF (None Seen); SQUAMOUS EPITHELIAL CELL,UR MOD /HPF (0-2)
== END 2024-08-02 20:53 | disposition home or self-care (01) ==
LOC: EDH 15:57 → EEVIPCON 15:57 → EDH 20:53
DX: K57.30 Diverticulosis of large intestine without perforation or abscess without bleeding (principal); K42.9 Umbilical hernia without obstruction or gangrene; D72.829 Elevated white blood cell count, unspecified; G43.909 Migraine, unspecified, not intractable, without status migrainosus; Z79.899 Other long term (current) drug therapy; Z88.0 Allergy status to penicillin; Z90.49 Acquired absence of other specified parts of digestive tract; Z98.890 Other specified postprocedural states
CPT/HCPCS: 99285; 74177; 80048; 85025; 86850; 86900; 86901; 81001; 81025; 36415; 74018; Q9967

== ENCOUNTER 2025-01-28 10:09 | Emergency (ER) | payer OTHER ==
[~2025-01-28] VITALS: Ht 167.6 cm; Wt 101.2 kg
[~2025-01-28 10:09] MED LIST changes: -PHEN-615 PO; +PHEN37.599 PO
--- NOTE | 2025-01-28 10:25 | ERN ---
General Chief Complaint: Headache Stated Complaint: HEADACHE Time Seen by MD: 10:10 Time Seen by Midlevel: 10:10 Source: patient History of Present Illness Initial Comments The patient is a 44-year-old female with a history of migraine headaches presenting to the emergency department with multiple complaints. She reports working outside for prolonged period of time yesterday. She developed the headache, palpitations, generalized body weakness. She saw her primary care doctor and was told that she may need IV fluids if her symptoms persisted. Today she woke up with a worsening symptoms so she decided to report to the ER for further evaluation. Allergies: Coded Allergies: piperacillin (Unverified Allergy, Intermediate, 10/01/22) RASH TO FACE AND R SIDE OF NECK. tazobactam (Unverified Allergy, Intermediate, 10/01/22) RASH TO FACE AND R SIDE OF NECK. Penicillins (Unverified Allergy, Mild, 10/01/22) HIVES amoxicillin (Unverified Allergy, Mild, 10/01/22) REDNESS TO BUE, ITCHING TO BODY clavulanic acid (Unverified Allergy, Mild, 10/01/22) REDNESS TO BUE, ITCHING TO BODY Home Meds Active Scripts Prednisolone Sod Phosphate (Prednisolone Sodium Phosphate) 30 Mg Tab.rapdis, 60 MG PO Q12H for 3 Days, #12 TAB Prov:MAGDALENA PITTMAN MD 10/31/23 Famotidine (Pepcid) 20 Mg Tablet, 20 MG PO Q12H for 3 Days, #6 TAB Prov:MAGDALENA PITTMAN MD 10/31/23 Diphenhydramine HCl (Benadryl) 50 Mg Cap, 50 MG PO Q6H for 3 Days, #12 CAP Prov:MAGDALENA PITTMAN MD 10/31/23 Famotidine (Famotidine) 40 Mg Tablet, 40 MG PO DAILY for 10 Days, #10 TAB Prov:REBECCA TERRELL MD 01/04/23 Diphenhydramine HCl (Benadryl) 25 Mg Cap, 25 MG PO TID for 10 Days, #40 CAP Prov:REBECCA TERRELL MD 01/04/23 Prednisone (Prednisone) 20 Mg Tablet, 3 TAB PO AD for 5 Days, #15 TAB 0 Refills TAKE 1 TAB BY MOUTH THREE TIMES PER DAY X3 DAYS, THEN TAKE 1 TAB BY MOUTH TWICE A DAY X2 DAYS, THEN TAKE 1 TAB BY MOUTH ONCE A DAY X1 DAY. Prov:REBECCA TERRELL MD 01/04/23 Reported Medications Ergocalciferol (Vitamin D2) (Vitamin D2) 1,250 Mcg (43185 Unit) Capsule, 1250 MCG PO AM, CAP 07/20/24 [place]-3 Fatty Acids/Fish Oil ([place] 3 1,000 mg Softgel) 300 Mg-1,000 Mg Capsule, 1 EACH PO BID, CAP 07/20/24 Phentermine HCl (Phentermine HCl) 37.5 Mg Capsule, 37.5 MG PO BID, CAP 07/20/24 Amitriptyline HCl (Amitriptyline HCl) 25 Mg Tablet, 25 MG PO HS, TAB 07/20/24 Dicyclomine HCl (Dicyclomine HCl) 20 Mg Tablet, 20 MG PO Q4HPRN PRN for PAIN LEVEL 1 TO 5, TAB 10/22/22 Montelukast Sodium (Montelukast Sodium) 10 Mg Tablet, 10 MG PO DAILY, TAB 10/22/22 Apremilast (Otezla) 1 Each Tab.ds.pk, 1 EACH PO QODAY 10/22/22 Metoprolol Tartrate (Metoprolol Tartrate) 25 Mg Tablet, 25 MG PO DAILY, TAB 10/22/22 Past Medical History Past Medical History: Migraines Medical History Other: ALLERGIES, PSORASIS Past Surgical History: Cholecystectomy, Other Surgical History Other: SKIN GRAFTS Family History Family History: Negative Social History Social History: Negative, Lives with family ROS Dictation CONSTITUTIONAL: Negative except for HPI HEAD/FACE: Negative except for HPI EENT: Negative except for HPI RESPIRATORY: Negative except for HPI GASTROINTESTINAL/ABDOMINAL: Negative except for HPI GENITOURINARY: Negative except for HPI MUSCULOSKELETAL: Negative except for HPI INTEGUMENTARY: Negative except for HPI NEUROLOGICAL/PSYCH: Negative except for HPI HEMATOLOGIC/LYMPHATIC: Negative except for HPI All Systems Negative, Except as noted above. 13 point review of systems assessed and all negative except for above. Physical Exam Physical Exam Dictation Vital Signs reviewed General Appearance: Alert, oriented x 3, no acute distress, well developed, nourished. Head and Face: non-traumatic. Eyes: PERRL, pink conjunctivas, eyelid no trauma, anterior chamber with arcus senilis. Ears: Pinnas intact and no signs of trauma or erythema ear canals clear and no discharge TM no erythema Nose: No discharge, no bleeding. Oropharynx: Mouth normal, tongue pink, pharynx clear,no erythema, tonsils no exudates, no abscesses noted, mucous membrane moist Neck: Supple, non-tender, no thyromegaly, no masses, no JVD, no bruits Breast:Deferred Chest:No tenderness, no crepitus, no paradoxical movement, no retractions Lungs:Clear, well-ventilated, symmetric, no rales, no wheezing, no rhonchi, no stridor, good breath sounds bilaterally Heart: Tachycardic, regular rhythm, no murmur, no gallops Vascular: no peripheral edema, Abdomen: Soft, positive bowel sounds, nondistended, no guarding, nontender, no rebound, no masses no hepatomegaly, no splenomegaly, no Landa's sign, no hernias. Rectal: Deferred Genital: Deferred Neurological: Normal speech, motor function intact, sensory function intact Musculoskeletal: Neck nontender, full range of motion, back nontender, full range of motion, Extremities: nontender, full range of motion Skin: Color pink, dry, no turgor, no rash, no lacerations, no abrasions, no contusions. Lymphatic: Deferred Results Laboratory and Microbiology Lab and Micro Result Laboratory Tests Test 01/28/25 10:33 01/28/25 11:32 White Blood Count 15.5 K/uL (4.8-10.8) H Red Blood Count 4.89 MIL/uL (4.00-5.50) Hemoglobin 14.6 g/dL (12.0-16.0) Hematocrit 42.1 % (36-48) Mean Corpuscular Volume 86.1 fL (79-99) Mean Corpuscular Hemoglobin 29.9 pg (27.0-33.0) Mean Corpuscular Hemoglobin Concent 34.7 g/dL (32.0-36.0) Red Cell Distribution Width 12.9 % (11.0-15.5) Platelet Count 475 K/uL (130-400) H Mean Platelet Volume 9.3 fL (7.5-10.5) Immature Granulocyte % (Auto) 2.2 % (0-1) H Neutrophils (%) (Auto) 88.2 % (40.0-77.0) H Lymphocytes (%) (Auto) 7.5 % (21.0-51.0) L Monocytes (%) (Auto) 2.0 % (3.0-13.0) L Eosinophils (%) (Auto) 0.0 % (0.0-8.0) Basophils (%) (Auto) 0.1 % (0.0-5.0) Neutrophils # (Auto) 13.7 K/uL (1.8-7.7) H Lymphocytes # (Auto) 1.2 K/uL (1.0-4.8) Monocytes # (Auto) 0.3 K/uL (0.1-1.0) Eosinophils # (Auto) 0.00 K/uL (0.00-0.70) Basophils # (Auto) 0.02 K/uL (0.00-0.20) Absolute Immature Granulocyte (auto 0.34 K/uL (0-1) Nucleated Red Blood Cells 0.0 % (0.0-0.19) White Cell Morphology Comment See comments Sodium Level 138 mmol/L (136-145) Potassium Level 3.8 mmol/L (3.5-5.1) Chloride Level 103 mmol/L (101-111) Carbon Dioxide Level 23 mmol/L (21-32) Blood Urea Nitrogen 11 mg/dL (7-18) Creatinine 0.7 mg/dL (0.5-1.0) Glomerular Filtration Rate Calc 111 mL/min (>90) Random Glucose 143 mg/dL (70-105) H Total Calcium 9.5 mg/dL (8.5-10.1) Total Creatine Kinase 44 U/L (21-232) # Troponin I High Sensitivity < 4 ng/L (4-50) L Serum Test, Qualitative NEGATIVE (NEGATIVE) Urine Color LIGHT-YELLOW (YELLOW) Urine Appearance CLEAR (CLEAR) Urine pH 7.0 (5.0-8.0) Urine Specific [place] 1.008 (1.001-1.031) Urine Protein NEGATIVE mg/dL (NEGATIVE) Urine Glucose (UA) NEGATIVE mg/dL (NEGATIVE) Urine Ketones NEGATIVE mg/dL (NEGATIVE) Urine Occult Blood NEGATIVE (NEGATIVE) Urine Nitrate NEGATIVE (NEGATIVE) Urine Bilirubin NEGATIVE mg/dL (NEGATIVE) Urine Urobilinogen 0.2 mg/dL (0.2-1.0) Urine Leukocyte Esterase NEGATIVE Aftab/uL Labs Reviewed?: Yes MDM MDM: Differential diagnosis: Dehydration, anemia, electrolyte abnormality, migraine There are no social concerns with this patient. Prescription drug management Prescriptions will include: None Medical management and examination interpretation discussions were had by me with other qualified healthcare professionals as indicated for the patient's care. ED Course Orders Procedure Category Date Status Time 12 Lead Ekg Tracing- EKG 01/28/25 Complete Technical 10:15 Cbc With Differential LAB 01/28/25 Complete 10:15 Basic Metabolic Panel LAB 01/28/25 Complete 10:15 Creatine Kinase, Total LAB 01/28/25 Complete 10:15 Testing, LAB 01/28/25 Complete Serum Hcg 10:15 Troponin I High LAB 01/28/25 Complete Sensitivity 10:15 Urinalysis Profile LAB 01/28/25 Complete 10:15 Chest 1vw RAD 01/28/25 Resulted 10:15 0.9%Nacl 1000ml (Ns PHA 01/28/25 Complete 1000ml) 10:30 Ondansetron 4mg Inj PHA 01/28/25 Complete (Zofran 4mg Inj) 10:30 Ketorolac PHA 01/28/25 Complete Tromethamine 15mg/Ml 12:00 Diphenhydramine Hcl PHA 01/28/25 Complete (Benadryl Inj) 12:00 Prochlorperazine PHA 01/28/25 Complete 10mg/2ml Inj 12:00 Current Medications Medications (Trade) Dose Ordered Sig/Alice Route PRN Reason Start Time Stop Time Status Last Admin Dose Admin Diphenhydramine HCl (BENAdryl INJ) 25 mg ONCE ONCE IV 01/28/25 12:00 01/28/25 12:01 DC 01/28/25 12:01 Ketorolac Tromethamine (toRADol) 15 mg ONCE ONCE IV 01/28/25 12:00 01/28/25 12:01 DC 01/28/25 12:02 Ondansetron HCl (zoFRAN 4MG INJ) 4 mg ONCE ONCE IVP 01/28/25 10:30 01/28/25 10:31 DC 01/28/25 10:27 Prochlorperazine Edisylate (Compazine 10mg/ 2ml Inj) 5 mg ONCE ONCE IV 01/28/25 12:00 01/28/25 12:01 DC 01/28/25 12:01 Sodium Chloride 1,000 ml @ 0 mls/hr ONCE ONCE IV 01/28/25 10:30 01/28/25 10:31 DC 01/28/25 10:27 Vital Signs Date Time Temp Pulse Resp B/P (MAP) Pulse Ox O2 Delivery O2 Flow Rate FiO2 01/28/25 11:39 97.9 95 18 140/80 98 Room Air* 0 21 01/28/25 10:10 97.7 125 18 152/105 98 Room Air 0 DX & DISP Disposition: Discharge Departure Impression: Primary Impression: Mild dehydration Additional Impression: Migraine headache Condition: Stable Additional Instructions: Your blood work today shows findings consistent with mild dehydration. You were given IV fluids and a migraine cocktail which should help improve your headache. Please follow up with your primary care doctor in 2-3 days for repeat evaluation. Return to the ER for any new or worsening symptoms Referrals: WALLACE OWUSU DO (PCP) Time of Disposition: 12:55 I have reviewed the case, and I agree with, Diagnosis and Plan I performed the substantive portion of the visit. I have reviewed and personally made and approve the management plan that is documented in the note by myself or the AUGUSTINA. I acknowledge for responsibility for the patient's management plan. FERMIN DAVILA January 28, 2025 10:25
[2025-01-28] MEDS: 0.9%NACL 1000ML 1,000 ML IV ONE (10:27)
[2025-01-28] MEDS: ondanSETRON 4MG INJ IVP ONE (10:27)
--- NOTE | 2025-01-28 11:01 | EKG ---
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
[2025-01-28 11:04] LABS: CREATININE 0.7 mg/dL (0.5-1.0); POTASSIUM 3.8 mmol/L (3.5-5.1)
[2025-01-28 11:12] LABS: BASOPHILS # (AUTO) 0.02 K/uL (0.00-0.20); BASOPHILS % (AUTO) 0.1 % (0.0-5.0); HEMATOCRIT 42.1 % (36-48); IMMATURE GRANULOCYTE ABSOLUTE 0.34 K/uL (0-1); LYMPHOCYTES # (AUTO) 1.2 K/uL (1.0-4.8); LYMPHOCYTES % (AUTO) 7.5 % (21.0-51.0); MEAN CORPUSCULAR HEMOGLOBIN 29.9 pg (27.0-33.0); MEAN CORPUSCULAR HGB CONC 34.7 g/dL (32.0-36.0); MEAN CORPUSCULAR VOLUME 86.1 fL (79-99); MONOCYTES # (AUTO) 0.3 K/uL (0.1-1.0); NEUTROPHILS # (AUTO) 13.7 K/uL (1.8-7.7); NEUTROPHILS % (AUTO) 88.2 % (40.0-77.0); PLATELET COUNT (AUTO) 475 K/uL (130-400); RED BLOOD CELL COUNT(AUTO) 4.89 MIL/uL (4.00-5.50); RED CELL DISTRIBUTION WIDTH 12.9 % (11.0-15.5); WHITE BLOOD COUNT (AUTO) 15.5 K/uL (4.8-10.8)
[2025-01-28 11:44] LABS: ADD UA MICROSCOPIC NO; APPEARANCE,URINE CLEAR (CLEAR); BILIRUBIN,URINE NEGATIVE (NEGATIVE); COLOR,URINE LIGHT-YELLOW (YELLOW); GLUCOSE, URINE (UA) NEGATIVE (NEGATIVE); KETONES,URINE NEGATIVE (NEGATIVE); LEUKOCYTE ESTERASE ,URINE NEGATIVE Leu/uL (NEGATIVE); NITRATE,URINE NEGATIVE (NEGATIVE); OCCULT BLOOD,URINE NEGATIVE (NEGATIVE); PROTEIN,URINE NEGATIVE (NEGATIVE); UROBILINOGEN,URINE 0.2 mg/dL (0.2-1.0)
[2025-01-28] MEDS: PROCHLORPERAZINE 10MG/2ML INJ IV ONE (12:01)
[2025-01-28] MEDS: DiphenhydrAMINE HCL 50 MG/ML VIAL IV ONE (12:01)
[2025-01-28] MEDS: ketOROlac 15MG/ML VIAL (15MG/ML) IV ONE (12:02)
--- NOTE | 2025-01-28 12:16 | HMCIMG ---
CHEST 1VW HISTORY: Palpitations COMPARISON: None FINDINGS: A frontal projection of the chest was obtained. No acute pulmonary infiltrates is seen. The heart is borderline enlarged. Degenerative changes are seen. No evidence of aortic calcification is seen. IMPRESSION: 1. No acute pulmonary infiltrate is seen.
[2025-01-28 13:00] VITALS: BP 134/79; PULSE 88; RESP 18; TEMP 97.9; O2SAT 98
== END 2025-01-28 13:05 | disposition home or self-care (01) ==
LOC: EDH 10:09
DX: G43.909 Migraine, unspecified, not intractable, without status migrainosus (principal); E86.0 Dehydration; Z79.899 Other long term (current) drug therapy; Z88.0 Allergy status to penicillin; Z88.1 Allergy status to other antibiotic agents; Z90.49 Acquired absence of other specified parts of digestive tract; Z98.890 Other specified postprocedural states
CPT/HCPCS: 99285; 96374; 96375; 71045; 96361; 82550; 84484; 80048; 84703; 85025; 81003; 36415; 93005; J1885; J1200; J7030; J0780; J2405

== ENCOUNTER → 2025-07-08 | Emergency (ER) | payer OTHER ==
[~2025-07-08] VITALS: Ht 167.6 cm; Wt 99.8 kg
[~2025-07-08] MED LIST changes: +AMIT25TA21 PO; -AMIT25TA9 PO; -DIPH50 PO; +DIPH50CA38 PO
[2025-07-08 16:07] VITALS: BP 155/82; PULSE 73; RESP 20; TEMP 98.2
--- NOTE | 2025-07-08 16:15 | ERN ---
ED Note History of Present Illness Stated Complaint: TOOTH EXTRACTION COMPLICATION Chief Complaint: Tooth Ache/Pain Time Seen by MD: 16:07 Dictation: PATIENT IS A 45-YEAR-OLD FEMALE WITH A TOOTH EXTRACTION DONE IN [place] THIS MORNING AND BLEEDING FROM THE SOCKET. SHE STATES SHE HAS NOT BEEN BACK OVER TO SEE THE DENTIST BECAUSE SHE DID NOT FEEL LIKE DRIVE NO THERE SHOWS CAME TO THE HOSPITAL. HE IS NOT ON ANY BLOOD THINNERS. SHE IS NOT HYPOTENSIVE. Allergies: Coded Allergies: piperacillin (Unverified Allergy, Intermediate, 10/01/22) RASH TO FACE AND R SIDE OF NECK. tazobactam (Unverified Allergy, Intermediate, 10/01/22) RASH TO FACE AND R SIDE OF NECK. Penicillins (Unverified Allergy, Mild, 10/01/22) HIVES amoxicillin (Unverified Allergy, Mild, 10/01/22) REDNESS TO BUE, ITCHING TO BODY clavulanic acid (Unverified Allergy, Mild, 10/01/22) REDNESS TO BUE, ITCHING TO BODY Home Meds Active Scripts Prednisolone Sod Phosphate (Prednisolone Sodium Phosphate) 30 Mg Tab.rapdis, 60 MG PO Q12H for 3 Days, #12 TAB Prov:MAGDALENA PITTMAN MD 10/31/23 Famotidine (Pepcid) 20 Mg Tablet, 20 MG PO Q12H for 3 Days, #6 TAB Prov:MAGDALENA PITTMAN MD 10/31/23 Diphenhydramine HCl (Benadryl) 50 Mg Cap, 50 MG PO Q6H for 3 Days, #12 CAP Prov:MAGDALENA PITTMAN MD 10/31/23 Famotidine (Famotidine) 40 Mg Tablet, 40 MG PO DAILY for 10 Days, #10 TAB Prov:REBECCA TERRELL MD 01/04/23 Diphenhydramine HCl (Benadryl) 25 Mg Cap, 25 MG PO TID for 10 Days, #40 CAP Prov:REBECCA TERRELL MD 01/04/23 Prednisone (Prednisone) 20 Mg Tablet, 3 TAB PO AD for 5 Days, #15 TAB 0 Refills TAKE 1 TAB BY MOUTH THREE TIMES PER DAY X3 DAYS, THEN TAKE 1 TAB BY MOUTH TWICE A DAY X2 DAYS, THEN TAKE 1 TAB BY MOUTH ONCE A DAY X1 DAY. Prov:REBECCA TERRELL MD 4/8/23 Reported Medications Ergocalciferol (Vitamin D2) (Vitamin D2) 1,250 Mcg (01138 Unit) Capsule, 1250 MCG PO AM, CAP 07/20/24 [place]-3 Fatty Acids/Fish Oil ([place] 3 1,000 mg Softgel) 300 Mg-1,000 Mg Capsule, 1 EACH PO BID, CAP 07/20/24 Phentermine HCl (Phentermine HCl) 37.5 Mg Capsule, 37.5 MG PO BID, CAP 07/20/24 Amitriptyline HCl (Amitriptyline HCl) 25 Mg Tablet, 25 MG PO HS, TAB 07/20/24 Dicyclomine HCl (Dicyclomine HCl) 20 Mg Tablet, 20 MG PO Q4HPRN PRN for PAIN LEVEL 1 TO 5, TAB 10/22/22 Montelukast Sodium (Montelukast Sodium) 10 Mg Tablet, 10 MG PO DAILY, TAB 10/22/22 Apremilast (Otez[place]) 1 Each Tab.ds.pk, 1 EACH PO QODAY 10/22/22 Metoprolol Tartrate (Metoprolol Tartrate) 25 Mg Tablet, 25 MG PO DAILY, TAB 10/22/22 Past Medical History Past Medical History: Migraines Additional Past Medical Hx: ALLERGIES, PSORASIS Surgical History: Cholecystectomy, Other Surgical History Other: SKIN GRAFTS Family History: Negative Social History: Negative, Lives with family History: Not Applicable RN Note Reviewed/Agreed w/PFSH: Yes Review of System Dictation CONSTITUTIONAL: NEGATIVE EXCEPT FOR HPI HEAD/FACE: NEGATIVE EXCEPT FOR HPI EENT: NEGATIVE EXCEPT FOR HPI BLEEDING FROM TO SOCKET RESPIRATORY: NEGATIVE EXCEPT FOR HPI GASTROINTESTINAL/ABDOMINAL: NEGATIVE EXCEPT FOR HPI GENITOURINARY: NEGATIVE EXCEPT FOR HPI MUSCULOSKELETAL: NEGATIVE EXCEPT FOR HPI INTEGUMENTARY: NEGATIVE EXCEPT FOR HPI NEUROLOGICAL/PSYCH: NEGATIVE EXCEPT FOR HPI HEMATOLOGIC/LYMPHATIC: NEGATIVE EXCEPT FOR HPI ALL SYSTEMS NEGATIVE, EXCEPT NOTED ABOVE. 13 POINT REVIEW OF SYSTEMS ASSESSED AND ALL NEGATIVE EXCEPT FOR ABOVE. Initial Vital Sign VS Vital Signs Date Time Temp Pulse Resp B/P (MAP) Pulse Ox O2 Delivery O2 Flow Rate FiO2 07/08/25 16:07 98.2 73 20 155/82 98 Room Air Physical Exam Dictation VITAL SIGNS REVIEWED GENERAL APPEARANCE: ALERT, ORIENTED X 3, NO ACUTE DISTRESS, WELL DEVELOPED, NOURISHED. HEAD AND FACE: NON-TRAUMATIC. EYES: PERRL, PINK CONJUNCTIVAS, EYELID NO TRAUMA, ANTERIOR CHAMBER WITH ARCUS SENILIS. EARS: PINNAS INTACT AND NO SIGNS OF TRAUMA OR ERYTHEMA EAR CANALS CLEAR AND NO DISCHARGE TM NO ERYTHEMA NOSE: NO DISCHARGE, NO BLEEDING. OROPHARYNX: MOUTH NORMAL, TONGUE PINK, PHARYNX CLEAR,NO ERYTHEMA, TONSILS NO EXUDATES, NO ABSCESSES NOTED, MUCOUS MEMBRANE MOIST NECK: SUPPLE, NON-TENDER, NO THYROMEGALY, NO MASSES, NO JVD, NO BRUITS BREAST:DEFERRED CHEST:NO TENDERNESS, NO CREPITUS, NO PARADOXICAL MOVEMENT, NO RETRACTIONS LUNGS:CLEAR, WELL-VENTILATED, SYMMETRIC, NO RALES, NO WHEEZING, NO RHONCHI, NO STRIDOR, GOOD BREATH SOUNDS BILATERALLY HEART: REGULAR RATE, REGULAR RHYTHM, NO MURMUR, NO GALLOPS VASCULAR: NO PERIPHERAL EDEMA, ABDOMEN: SOFT, POSITIVE BOWEL SOUNDS, NONDISTENDED, NO GUARDING, NONTENDER, NO REBOUND, NO MASSES NO HEPATOMEGALY, NO SPLENOMEGALY, NO POTTER'S SIGN, NO HERNIAS. RECTAL: DEFERRED GENITAL: DEFERRED NEUROLOGICAL: NORMAL SPEECH, MOTOR FUNCTION INTACT, SENSORY FUNCTION INTACT MUSCULOSKELETAL: NECK NONTENDER, FULL RANGE OF MOTION, BACK NONTENDER, FULL RANGE OF MOTION, EXTREMITIES: NONTENDER, FULL RANGE OF MOTION SKIN: COLOR PINK, DRY, NO TURGOR, NO RASH, NO LACERATIONS, NO ABRASIONS, NO CONTUSIONS. LYMPHATIC: DEFERRED Results (Laboratory/Radiology) Labs Reviewed?: Yes ED Course ED Course Vital Signs Date Time Temp Pulse Resp B/P (MAP) Pulse Ox O2 Delivery O2 Flow Rate FiO2 07/08/25 16:07 98.2 73 20 155/82 98 Room Air NO LABS OR IMAGING INDICATED. WE WILL REPACK THE SOCKET AND HAVE PATIENT FOLLOW UP WITH HER DENTIST Medical Decision Making [facility] 1645/PATIENT LEFT AGAINST MEDICAL ADVICE. DX & DISP Disposition: AMA Departure Impression: Primary Impression: Hemorrhage of tooth socket Condition: Stable Referrals: WALLACE OWUSU DO (PCP) Time of Disposition: 16:46 I have reviewed the case, and I agree with, Diagnosis and Plan SHAHRIAR MEZA Jul 08, 2025 16:15
== END ==
LOC: EDH 16:05
DX: K91.840 Postprocedural hemorrhage of a digestive system organ or structure following a digestive system procedure (principal); K08.89 Other specified disorders of teeth and supporting structures; Z88.0 Allergy status to penicillin; Z88.1 Allergy status to other antibiotic agents; Z79.899 Other long term (current) drug therapy; Z90.49 Acquired absence of other specified parts of digestive tract; Y83.8 Other surgical procedures as the cause of abnormal reaction of the patient, or of later complication, without mention of misadventure at the time of the procedure; Y82.8 Other medical devices associated with adverse incidents
CPT/HCPCS: 99282